=== PATIENT | male | born 1975 | race Caucasian/White ===

== ENCOUNTER 2021-07-20 12:47 | Emergency (ER) | payer OTHER, SELFPAY ==
--- NOTE | 2021-07-20 12:51 | ED.URI ---
HPI - URI/Sore Throat General Chief Complaint: Upper Respiratory Infection Stated Complaint: Sinus Congestion Time Seen by Provider: 07/20/21 12:51 Source: patient and RN notes reviewed History of Present Illness HPI Narrative: Patient is a 45-year-old male who presents the urgent care with complaints of chest congestion and sinus congestion. Patient states that started about 2 to 3 days ago. States that he does have the Covid vaccine and denies of any recent exposures. Patient has been using old nebulizers at home. Denies of any fever, chills, nausea, vomiting. No other acute complaints. No acute distress noted. Patient aware of the plan of care. Some parts of this dictation were generated by voice recognition software and may contain typographical and/or grammatical inaccuracies. Related Data Allergies Allergy/AdvReac Type Severity Reaction Status Date / Time No Known Allergies Allergy Verified 07/20/21 13:08 Review of Systems Review of Systems: CONSTITUTIONAL: Denies fever, chills, or sweats. EYES: Denies visual changes, redness, or discharge. ENT: Denies rhinorrhea,sore throat, or otalgia. Reports of sinus congestion/pressure CARDIOVASCULAR: Denies chest pain, palpitations, or edema. RESPIRATORY: Reports a mild cough with chest congestion and intermittent shortness of breath GASTROINTESTINAL: Denies abdominal pain, nausea, vomiting, or diarrhea. GENITOURINARY: Denies dysuria or hematuria. SKIN: Denies rash or itching. MUSCULOSKELETAL: Denies back pain, joint pain, or myalgia. NEUROLOGIC: Denies headache, numbness, or weakness. All other systems reviewed are negative, except as documented in HPI. PMFSH Comments At the time of my signature, I reviewed and agree with the nursing past medical, surgical, social, and family history. There is no relevant family history pertinent to the patient complaint. Exam Narrative: GENERAL: This is a well-nourished, well-developed patient, in no apparent distress. HEAD: normocephalic, atraumatic. EYES: PERRL. Sclera clear/white. Vision is grossly intact. EARS: External ears normal, auditory canals clear and without drainage, TMs normal without perforation. Hearing grossly intact. NOSE: External nose normal with no obvious nasal discharge, nares without redness, clear rhinorrhea. THROAT: Mucous membranes moist, posterior pharynx clear. Moderate postnasal drainage NECK: Neck supple, non-tender without lymphadenopathy, masses or thyromegaly. CARDIOVASCULAR: Regular rate and rhythm without murmurs, gallops, or rubs. RESPIRATORY: Slight crackles throughout with inspiratory and expiratory wheezes SKIN: warm, intact with no suspicious lesions or rash, good texture and turgor. NEURO: awake, alert, and oriented to person, place and time. There were no obvious focal neurologic abnormalities. EXTREMITIES: No clubbing, cyanosis, or edema. Course Vital Signs Vital signs: Vital Signs Temperature 99.6 F 07/20/21 12:59 Pulse Rate 106 H 07/20/21 12:59 Respiratory Rate 16 07/20/21 12:59 Blood Pressure 136/86 07/20/21 12:59 Pulse Oximetry 98 07/20/21 12:59 Temperature 99.6 F 07/20/21 12:59 Pulse Rate 106 H 07/20/21 12:59 Respiratory Rate 16 07/20/21 12:59 Blood Pressure 136/86 07/20/21 12:59 Pulse Oximetry 98 07/20/21 12:59 Reviewed MDM - URI/Sore Throat MDM Narrative Medical decision making narrative: Advised patient to complete the steroid regimen as prescribed. Continue nebulizer treatments as needed. Use the albuterol inhaler as needed for intermittent shortness of breath or coughing fits. He sure to eat and drink with the medication. Use Tylenol/ibuprofen as needed. If you develop any increase in symptoms associated with chest pain or shortness of breath?go to the emergency room. Follow-up with your PCP within 2 to 5 days or for worsening symptoms or failure to improve. Differential Diagnosis Differential diagnosis: Likely upper respiratory infection, otit
[2021-07-20 12:59] VITALS: BP 136/86; PULSE 106; RESP 16; TEMP 37.6; O2SAT 98
== END 2021-07-20 13:12 | disposition home or self-care (01) ==
PROVIDERS: Emergency Provider Nurse Practitioner Family
DX: J40 Bronchitis, not specified as acute or chronic (principal)
CPT/HCPCS: 99213; G0463

== ENCOUNTER 2021-11-28 08:08 | Emergency (ER) | payer OTHER, SELFPAY ==
[2021-11-28 08:12] VITALS: BP 142/72; PULSE 94; RESP 20; TEMP 37.3; O2SAT 100
--- NOTE | 2021-11-28 08:12 | ED.SKABFB ---
HPI - Skin/Abscess/Foreign Bdy General Chief complaint: Skin/Abscess/Foreign Body Stated complaint: Insect Bite Time Seen by Provider: 11/28/21 08:13 Source: patient Mode of arrival: ambulatory Limitations: no limitations History of Present Illness HPI narrative: Mr. Roa is a 46-year-old male patient presenting to the clinic today with complaints of possible insect bite to the left cheek. He reports this occurred on Sunday. States that he slept near a family member's dog and thinks a bug may have jumped off him and bit his left cheek. He reports that the pain, redness, and swelling has worsened since Sunday. He denies any fever or chills. Related Data Allergies Allergy/AdvReac Type Severity Reaction Status Date / Time No Known Allergies Allergy Verified 11/28/21 08:17 Review of Systems Review of Systems: Pertinent positives per HPI. Patient denies any fever, chills, rash, headache, visual changes, dizziness, cough, runny nose, sore throat, shortness of breath, chest pain, palpitations, nausea, vomiting, diarrhea, constipation, abdominal pain, or any urinary issues. PMFSH Comments At the time of my signature, I reviewed and agree with the nursing past medical, surgical, social, and family history. There is no relevant family history pertinent to the patient complaint. Exam Narrative: General: Well-developed, well nourished, in no apparent distress Head: Normocephalic, atraumatic. Cardio: Regular rate and rhythm, s1 and s2 normal, no murmur appreciated. Resp: Clear to auscultation bilaterally, no rhonchi, rales, wheezing or rubs. Integumentary: [place], warm, and dry, area measuring 2.5 cm x 1.5 cm of induration, redness, erythemic, swelling, and tenderness to palpation to the left cheek. No fluctuance felt. No discharge Course Course Emergency Course: Portions of this record may have been created with voice recognition software. Level of Care: Express Care Visit Vital Signs Vital signs: Vital Signs Temperature 37.3 C 11/28/21 08:12 Pulse Rate 94 11/28/21 08:12 Respiratory Rate 20 11/28/21 08:12 Blood Pressure 142/72 H 11/28/21 08:12 Pulse Oximetry 100 04/18/22 08:12 Temperature 37.3 C 11/28/21 08:12 Pulse Rate 94 11/28/21 08:12 Respiratory Rate 20 11/28/21 08:12 Blood Pressure 142/72 H 11/28/21 08:12 Pulse Oximetry 100 11/28/21 08:12 Vital signs reviewed MDM - Skin/Abscess/Foreign Bdy MDM Narrative Medical decision making narrative: At the time of assessment patient is resting comfortably on the exam table. Has a 2.5 x 1.5 cm of induration to his left cheek just below his eye and this seems to be spreading downwards. Believes he may have been bitten by a insect. I suspect a bacterial skin infection with cellulitis. We will send in a prescription for Bactrim DS for 10 days because since this is on the face near the eye. Discussed supportive measures with patient and he voiced understanding of discharge instructions. Differential Diagnosis Differential diagnosis: Likely abscess of skin or subcutaneous tissue, herpes zoster, cellulitis, insect bites, impetigo and contact dermatitis Discharge Plan Discharge Clinical Impression: Bacterial infection of skin Cellulitis Qualifiers: Site of cellulitis: face Qualified Code(s): L03.211 - Cellulitis of face Patient Disposition: Home, Self-Care Condition: Stable Instructions: Antibiotic Form, Cellulitis (ED) Additional Instructions: Cool compresses to area as discussed Tylenol/motrin for pain/fever Bactrim DS as directed Follow up with your PCP in 3-5 days if symptoms persist or sooner if they are worsening. Go to the ER if symptoms worsening such as high fever that is not controlled by Tylenol or Motrin, worsening of pain, increasing redness and swelling, or streaking. Prescriptions: New sulfamethoxazole-trimethoprim [Bactrim DS] 800-160 mg tablet 1 tablet PO Q12H 10 Days Qty: 20 RF: 0 Follow-up/Refe
== END 2021-11-28 08:26 | disposition home or self-care (01) ==
PROVIDERS: Emergency Provider Nurse Practitioner Family
DX: A49.9 Bacterial infection, unspecified (principal); L03.211 Cellulitis of face
CPT/HCPCS: 99213; G0463